=== PATIENT | male | born 1980 | race Caucasian/White ===

== ENCOUNTER 2023-09-22 12:31 | Emergency (ER) | payer BC, SELFPAY ==
[2023-09-22 12:38] VITALS: BP 148/116
--- NOTE | 2023-09-22 13:28 | ED.GENMED ---
History of Present Illness
General
Chief Complaint: Musculo-Skeletal Complaint
Source: patient
Time Seen by Provider: 09/22/23 12:57
Travel History
Have you had any contact with someone who has COVID-19?: No
Do you have any symptoms of coronavirus? Fever > 100 degrees, chills, cough, shortness of breath, sore throat, loss of taste or smell, muscle aches, or headache?: No
History of Present Illness
History of Present Illness:
43-year-old male with past medical history of hypertension presenting to the emergency department for evaluation of right-sided lower back pain that began after he was picking up one of his son's toys on the ground earlier this morning. Patient
states he stood up and felt a pulling sensation in his right lower back that is gradually worsened throughout the day now with some paresthesia to the right anterior thigh. Patient states that he got on the ground and tried to stretch but had
significant difficulty getting up off the ground to the pain. He did take some Motrin which seemed to help somewhat. Denies any bladder or bowel incontinence, saddle anesthesias, focal weakness or numbness, traumatic injuries, history of IV drug
abuse, long-term corticosteroid use, cancer or any other concerns.
Past History
Past History
ED Past Medical History: HTN
ED Past Surgical History: Appendectomy and Other (Hernia)
Social History
Tobacco: Non-smoker
Alcohol: Occasional
Drug: None
Personal:
Living: with family
Employment: Employed
Review of Systems
Review of Systems
All Other Systems: ROS reviewed and negative except as documented in HPI and ROS
Phy Exam
Physical Exam
Physical Exam:
GENERAL: Alert , in no apparent distress but does appear uncomfortable at rest
EYE: clear conjunctiva b/l
NECK: Supple
ENT: mmm.
ABDOMEN: Soft, without focal tenderness, no r/g, no cvat
BACK: Pain with attempted range of motion, tenderness within the right paralumbar extending more towards the midline but no focal midline tenderness, no rashes
NEUROLOGICAL: Alert and oriented, no focal neuro deficits. sensation grossly intact and equal to light touch bilateral lower extremities
SKIN: Warm and dry, skin intact.
MUSCULOSKELETAL: No edema, well perfused. EHL intact bilaterally
PSYCH: Normal and appropriate interaction.
Scores
Heart Failure Risk
Heart Failure Risk Score: Not Applicable
Heart Score for Chest Pain Patients
STEMI patient?: Not applicable
Withdrawal Assessment of Alcohol
Withdrawal Assessment Completed?: Not applicable
Course
Orders/Labs/Results
Orders:
Orders
09/22/23 13:26
CR Lumbar Spine Comp Min 4 Vw* Urgent
Comment:
Reason For Exam: right sided lower back pain
Vital Signs
Initial and Last Documented VS:
Initial Vital Signs
Temp Pulse Resp BP Pulse Ox
98.4 F 88 18 148/116 98
09/22/23 12:38 09/22/23 12:38 09/22/23 12:38 09/22/23 12:38 09/22/23 12:38
Last Documented Vital Signs
Temp Pulse Resp BP Pulse Ox
98.4 F 105 18 124/88 98
09/22/23 12:38 09/22/23 13:56 09/22/23 12:38 09/22/23 13:56 09/22/23 12:38
MDM/Problems Addressed
Differential Diagnosis Includes:
Lumbar strain, disc herniation, nerve impingement, no concern for infectious etiology nor cauda equina
MDM/Problems Addressed:
43-year-old male presenting emergency department for evaluation of right-sided lower back pain that began after attempting up a toy earlier today. Symptoms seem to be most suggestive of a lumbar strain and possibility of even small disc
herniation/nerve impingement. Will check an x-ray. Discussed management and patient would like to have medicine to go home with. Anticipate discharge home and close outpatient follow-up.
*Radiology
Radiology exam reviewed: preliminary read by ED provider (lumbar spine straightening)
*Pulse Oximetry
Patient hypoxic: no
*Critical Care Note
Total Time (30-74mins, 75-104mins- exclusive of procedures): Not Applicable
Patient Management
Escalation/DeEscalation of care consider admission/obs:
Patient stable for discharge home and outpatient management
ED Attending Note
-
Portions of this chart may have been created with voice recognition software.� Occasional wrong word or��sound alike� substitutions may have occurred due to the inherent limitations of voice recognition software.
Discharge Plan
Departure
Patient Disposition: Home (Routine Discharge)
Date of Disposition: 09/22/23
Time of Disposition: 13:47
Patient with high blood pressure during this ER visit?: Yes
Discharge Problem:
Low back pain
Instructions: Back Pain
Prescriptions:
New
methylprednisolone [Medrol (Julián)] 4 mg tablets,dose pack
4 mg PO DIRECTED Qty: 21 0RF
baclofen 10 mg tablet
10 mg PO BID PRN (Reason: muscle spasm) Qty: 8 0RF
lidocaine [Lidoderm] 5 % adhesive patch,medicated
1 patch topical DAILY Qty: 30 0RF
Referrals:
Saeid Glover CRNP [Family Provider] -
Interventions
Interventions:
*Risk Screen - Suicide Last Done: 09/22/23 13:55
*General Assessment Last Done: 09/22/23 13:56
*Neglect/Abuse Screening Last Done: 09/22/23 13:55
*ED COVID-19 Vaccine History Last Done: 09/22/23 13:55
*Nursing Disposition Last Done: 09/22/23 13:56
ED-Musculoskeletal Assessment Last Done: 09/22/23 13:31
Discharge Date and Time
Discharge Date/Time: 09/22/23 13:57
Print Language: BULGARIAN
[2023-09-22 13:56] VITALS: BP 124/88
== END 2023-09-22 13:57 | disposition home or self-care (01) ==
LOC: EMR 12:31
PROVIDERS: EMERGENCY PHYSICIAN Emergency Medicine; FAMILY PHYSICIAN Nurse Practitioner Family
DX: M54.50 Low back pain, unspecified (principal); I10 Essential (primary) hypertension; Z90.49 Acquired absence of other specified parts of digestive tract
CPT/HCPCS: 99283; 72110

== ENCOUNTER 2024-12-23 18:21 | Emergency (ER) | payer BC, SELFPAY ==
[2024-12-23 18:32] VITALS: BP 130/89
[2024-12-23 18:56] LABS: Hematocrit 41.8 % (39.0-52.0); Hemoglobin 14.5 g/dL (13.0-18.0); Mean Corp Hgb Conc. 34.7 g/dL (33.0-37.0); Mean Corpuscular Volume 77.0 fL (80.0-94.0); Nucleated Red Blood Cells % 0 % (-); Platelet Count 213 10^3/uL (130-400); Red Cell Dist. Width 13.9 % (11.5-14.5)
[2024-12-23 19:17] LABS: ALT (SGPT) 20 U/L (0-50); AST (SGOT) 17 U/L (17-59); Albumin 4.5 g/dl (3.5-5.0); Alkaline Phosphatase 67 U/L (38-126); Blood Urea Nitrogen 21 mg/dl (9-20); Calcium 9.3 mg/dl (8.4-10.2); Carbon Dioxide 24 mmol/L (22-30); Chloride 106 mmol/L (98-107); Glucose 110 mg/dl (70-99); Potassium 3.9 mmol/L (3.5-5.1); Sodium 139 mmol/L (135-145); Total Protein 7.4 g/dl (6.3-8.2); eGFR > 60.00
[2024-12-23 21:10] VITALS: BP 136/84
[2024-12-23 22:00] VITALS: BP 110/80
--- NOTE | 2024-12-23 22:05 | ED.GENMED ---
History of Present Illness
General
Chief Complaint: Heart Rate Problem
Source: patient
Exam Limitations: none
Time Seen by Provider: 12/23/24 21:33
Nursing documentation reviewed up to this point in time: agreed with
History of Present Illness
History of Present Illness:
44-year-old male with history of GERD, has been on Zepbound for over a year, taking minoxidil and finasteride for hair loss, who presented with heart palpitations and an increased heart rate. Symptoms began at 5:30 PM while the patient was dining
with family, consuming [place] food, and a [place]renton. He noticed his heart rate climbing via an Apple Watch alert and described the palpitations as feeling like his heart was 'beating out of my chest.' The patient denies chest pain, shortness of
breath, nausea, vomiting, diarrhea, constipation, and recent travel except for a trip to [facility] in November. He reports normal dietary intake, hydration, bowel, and urinary habits. A cold with a scratchy throat x 1 day began 10 days ago leaving
residual sinus congestion. No known sick contacts
Past History
Past History
ED Past Medical History: HTN
ED Past Surgical History: Appendectomy and Other (Hernia)
Social History
Tobacco: Non-smoker
Alcohol: Occasional
Drug: None
Personal:
Living: with family
Employment: Employed
Review of Systems
Review of Systems
Allergies reviewed?: Yes
All Other Systems: ROS reviewed and negative except as documented in HPI and ROS
Constitutional: Denies fever or fatigue
EENT: Reports other (sinus congestion); Denies sore throat
Respiratory: Denies cough or trouble breathing
Cardiac: Reports palpitations; Denies chest pain, diaphoresis or syncope
ABD/GI: Denies abdominal pain, nausea, diarrhea or anorexia
: Reports no symptoms
Musculoskeletal: Reports no symptoms
Skin: Reports no symptoms
Neurological: Reports no symptoms
Phy Exam
Physical Exam
Physical Exam:
GENERAL: No acute distress. A&Ox3.
CONSTITUTIONAL: Afebrile.
EYES: clear, conjunctivae normal
ENMT: moist mucus membranes, Pharynx nl
RESPIRATORY: Regular respirations, nonlabored, lungs clear.
CARDIOVASCULAR: Regular rate and rhythm, sinus tachycardia 112 on monitor, no murmurs, no rubs.
GI: Soft, nontender, normal BS
MUSCULOSKELETAL: Moves with ease. Well perfused. No edema
SKIN: Warm, dry, pink
PSYCH: Normal mood and affect. Well kept, interactive and appropriate
NEUROLOGIC: Awake, alert and oriented. No focal neurological deficits
Course
Orders/Labs/Results
Orders:
Orders
12/23/24 18:36
Electrocardiogram (*1) Urgent
Reason for Study: Abdominal Pain
EKG- Treatment ONCE
12/23/24 18:44
Complete Blood Count/With Diff Urgent
Comprehensive Metabolic Panel Urgent
TSH Reflex To Free T4 Urgent
Comment: ADD ON
12/23/24 22:10
0.9% Sodium Chloride 1000 ml [Nss] 1,000 ml IV BOLUS
12/23/24 22:14
Add On- LAB Urgent
Tests Added?: TSH reflex T4
12/23/24 22:29
COVID-19 Antigen Urgent
Source: Nasal Swab
D-Dimer Urgent
12/23/24 22:43
Troponin I Urgent
Abnormal Lab Results
12/23/24
18:44
MCV 77.0 L fL
(80.0-94.0)
MCH 26.7 L pg
(27.0-31.0)
BUN 21 H mg/dl
(9-20)
Glucose 110 H mg/dl
(70-99)
12/23/24 18:44
12/23/24 18:44
Vital Signs
Initial and Last Documented VS:
Initial Vital Signs
Temp Pulse Resp BP Pulse Ox
99 F 132 20 130/89 94
12/23/24 18:32 12/23/24 18:32 12/23/24 18:32 12/23/24 18:32 12/23/24 18:32
Last Documented Vital Signs
Temp Pulse Resp BP Pulse Ox
99 F 93 16 112/75 94
12/23/24 18:32 12/24/24 01:20 12/24/24 01:20 12/24/24 01:20 12/24/24 01:20
MDM/Problems Addressed
Differential Diagnosis Includes:
Sinus tachycardia, dehydration, anxiety, hyperthyroidism, infection, PE
MDM/Problems Addressed:
44-year-old male with history of GERD, has been on Zepbound for over a year, taking minoxidil and finasteride for hair loss, who presented with heart palpitations and an increased heart rate. Symptoms began at 5:30 PM while the patient was dining
with family, consuming [place] food, and a [place]rent[place]. He noticed his heart rate climbing via an Apple Watch alert and described the palpitations as feeling like his heart was 'beating out of my chest.' The patient denies chest pain, shortness of
breath, nausea, vomiting, diarrhea, constipation, and recent travel except for a trip to [facility] in November. He reports normal dietary intake, hydration, bowel, and urinary habits. A cold with a scratchy throat x 1 day began 10 days ago leaving
residual sinus congestion. No known sick contacts
EKG: Sinus tachycardia with a heart rate of 123. Left axis deviation.
11:45 PM:
CBC, CMP normal
Troponin normal
COVID test is negative
TSH within normal limits
D-dimer within normal limits
Heart rate has normalized and is now 97
1:15 a.m.
After IVFs HR 87
Nothing concerning in work up.
*Pulse Oximetry
SaO2: 95
Oxygen Mode of Delivery: Room air
Patient hypoxic: no
*EKG
EKG Intrepretation Date: 12/23/24
Interpretation: abnormal
Comparison EKG: no comparison EKG present
Heart Rate: 123
Rate: tachycardiac
Rhythm: sinus
[address]: left axis deviation
Interval: normal interval
QRS Pattern: normal QRS
Ischemia: no ischemia
*Critical Care Note
Total Time (30-74mins, 75-104mins- exclusive of procedures): Not Applicable
ED Attending Note
-
Portions of this chart may have been created with voice recognition software.� Occasional wrong word or��sound alike� substitutions may have occurred due to the inherent limitations of voice recognition software.
Discharge Plan
Departure
Patient Disposition: Home (Routine Discharge)
Date of Disposition: 12/24/24
Time of Disposition: 01:15
Patient with high blood pressure during this ER visit?: No
Condition: Good
Discharge Problem:
Tachycardia
Instructions: Palpitations (DC)
Prescriptions:
No Action
methylprednisolone [Medrol (Julián)] 4 mg tablets,dose pack
4 mg PO DIRECTED Qty: 21 0RF
baclofen 10 mg tablet
10 mg PO BID PRN (Reason: muscle spasm) Qty: 8 0RF
lidocaine [Lidoderm] 5 % adhesive patch,medicated
1 patch topical DAILY Qty: 30 0RF
Referrals:
Quinton Rondon DO [Family Provider, Internal Medicine]
Rodrigo Alvarez DO [Active, Cardiology] - Next open appointment
Activity Restrictions/Additional Instructions:
As we discussed, drink plenty of fluids
Your heart rate is now normal
Call and make an appointment with a coupon and bond collection clerk for a more complete cardiac workup.
Interventions
Interventions:
*Risk Screen - Suicide Last Done: 12/23/24 18:32
*General Assessment Last Done: 12/23/24 18:32
*Neglect/Abuse Screening Last Done: 12/23/24 18:32
*ED- Fall Risk Assessment Last Done: 12/24/24 01:04
*ED COVID-19 Vaccine History Last Done: 12/23/24 21:23
*Nursing Disposition Last Done: 12/24/24 01:20
ED- Cardiac Assessment Last Done: 12/23/24 21:23
ED- Pulmonary Assessment Last Done: 12/23/24 21:23
Discharge Date and Time
Discharge Date/Time: 12/24/24 01:24
Print Language: WOLOF
[2024-12-23] MEDS: NSS 1000 IV (22:30)
[2024-12-23 22:49] LABS: D-Dimer < 0.27 ug/mlFEU (0.00-0.50)
[2024-12-23 22:51] LABS: COVID-19 Antigen Negative (Negative)
[2024-12-23 23:00] VITALS: BP 112/73
[2024-12-23 23:25] LABS: Troponin I < 0.012 ng/ml
[2024-12-24] VITALS: BP 105/64
[2024-12-24 01:00] VITALS: BP 112/75
[2024-12-24 01:20] VITALS: BP 112/75
== END 2024-12-24 01:24 | disposition home or self-care (01) ==
LOC: EMR 18:21
PROVIDERS: Emergency Medicine; Registered Nurse; EMERGENCY PHYSICIAN Student in an Organized Health Care Education/Training Program; FAMILY PHYSICIAN Internal Medicine
DX: R00.0 Tachycardia, unspecified (principal); I10 Essential (primary) hypertension; K21.9 Gastro-esophageal reflux disease without esophagitis; Z90.49 Acquired absence of other specified parts of digestive tract; Z79.899 Other long term (current) drug therapy; Z11.52 Encounter for screening for COVID-19
CPT/HCPCS: 99284; 96360; 80053; 84443; 84484; 85025; 85379; 87811; 93005